=== PATIENT | male | born 1950 | race African-American/Black ===

== ENCOUNTER 2021-11-24 04:12 | Inpatient (IN) | payer OTHER ==
[2021-11-22 12:04] VITALS: BMI 33.0
[2021-11-24] MEDS ORDERED: BACITRACIN 15 GM TUBE TOPICAL OINTMENT ONE (07:07)
[2021-11-24] MEDS ORDERED: methylPREDNISolone ACET (DEPO) 80 MG/1 ML VIAL ONE (07:07)
[2021-11-24] MEDS ORDERED: THROMBIN (BOVINE) 5,000 UNIT VIAL TP ONE ×2 (07:07→08:36)
[2021-11-24] MEDS ORDERED: BUPIVACAINE HCL/PF 0.5% (5MG/ML) 10 ML VIAL ONE ×2 (07:08→10:13)
[2021-11-24] MEDS ORDERED: VANCOMYCIN 1,000 MG VIAL (RESTRICTED TO ID ONLY) ONE (07:21)
[2021-11-24] MEDS ORDERED: GENTAMICIN SO4 80 MG/2 ML VIAL ONE (07:21)
[2021-11-24] MEDS ORDERED: MIDAZOLAM HCL 2 MG/2 ML SINGLE DOSE VIAL ONE (07:37)
[2021-11-24] MEDS ORDERED: SUCCINYLCHOLINE CHLORIDE 200 MG/10 ML SYRINGE ONE (07:38)
[2021-11-24] MEDS ORDERED: PROPOFOL 20 ML ONE ×3 (07:38)
[2021-11-24] MEDS ORDERED: ROCURONIUM BROMIDE 50 MG/5 ML SYRINGE ONE (07:38)
[2021-11-24] MEDS ORDERED: ceFAZolin SODIUM 1 GM VIAL IVPB ONE ×2 (08:15→17:10)
[2021-11-24] MEDS ORDERED: VANCOMYCIN 1,000 MG VIAL (RESTRICTED TO ID ONLY) IVPB ONE (08:36)
[2021-11-24] MEDS ORDERED: BUPIVACAINE HCL/PF 0.5% (5MG/ML) 10 ML VIAL IJ ONE (09:40)
[2021-11-24] MEDS ORDERED: BISACODYL 10 MG SUPP.RECT RC PRN (10:12)
[2021-11-24] MEDS ORDERED: ACETAMINOPHEN 325 MG TABLET (FP) PO PRN (10:12)
[2021-11-24] MEDS ORDERED: ONDANSETRON 4 MG/2 ML VIAL IVPUSH PRN ×3 (10:12→11:03)
[2021-11-24] MEDS ORDERED: NEOSTIGMINE METHYLSULFATE 0.5 MG/1 ML - 10 ML MDV ONE (10:28)
[2021-11-24] MEDS ORDERED: PROMETHAZINE HCL 25 MG/1 ML VIAL IVPB PRN (11:03)
[2021-11-24] MEDS ORDERED: DEXAMETHASONE SOD PHOSPHATE 4 MG/1 ML VIAL IVPUSH PRN (11:03)
[2021-11-24] MEDS ORDERED: HYDROmorphone *PCA* 10MG/50ML DISP.SYRIN ONE (11:11)
[2021-11-24] MEDS ORDERED: LACTATED RINGERS SOLUTION 1,000 ML IV SCH (11:15)
[2021-11-24 11:41] LABS: HEMATOCRIT 40.8 % (35.4-49); HEMOGLOBIN 13.9 GM/dL (11.7-16.9); MCH 31.6 pg (25.7-33.7); MCHC 34.2 g/dl (32.0-35.9); MEAN CELL VOLUME 92.5 fl (80-96); PLATELET COUNT 191 10^3/uL (134-434); RBC 4.41 M/mm3 (4.00-5.60); RDW 13.3 % (11.9-15.9); WHITE BLOOD COUNT 6.5 K/mm3 (4.0-10.0)
[2021-11-24 12:05] LABS: CALCIUM 8.9 mg/dL (8.5-10.1)
[2021-11-24] MEDS ORDERED: HYDROmorphone *PCA* 10MG/50ML DISP.SYRIN PCA ONE (12:05)
[2021-11-24 12:08] LABS: CREATININE 1.8 mg/dL (0.55-1.3)
[2021-11-24] MEDS ORDERED: BACITRACIN 15 GM TUBE TOPICAL OINTMENT TP ONE (14:45)
[2021-11-24] MEDS ORDERED: ceFAZolin SODIUM 1 GM VIAL ONE (17:04)
[2021-11-24] MEDS: CEFAZOLIN 1 GM in DEXTROSE 5%-WATER - 50 ML IVPB SCH (17:59)
[2021-11-24] MEDS: DOCUSATE SODIUM 100 MG CAPSULE (FP) PO SCH (21:42)
[2021-11-25] MEDS: D5-1/2NS+20 MEQ KCL - 20 MEQ/1,000 ML INFUS.BAG IV SCH ×5 (01:08→11:59)
[2021-11-25] MEDS: diazePAM 5 MG TABLET PO SCH ×4 (01:16→17:29)
[2021-11-25] MEDS ORDERED: ceFAZolin SODIUM 1 GM VIAL ONE ×2 (02:02→09:48)
[2021-11-25] MEDS ORDERED: DEXTROSE 5%-WATER - 50 ML IVPB ONE ×2 (02:02→09:48)
[2021-11-25] MEDS: CEFAZOLIN 1 GM in DEXTROSE 5%-WATER - 50 ML IVPB SCH ×2 (02:04→10:12)
[2021-11-25] MEDS: DOCUSATE SODIUM 100 MG CAPSULE (FP) PO SCH ×4 (06:34→21:04)
[2021-11-25 08:36] LABS: BASO % 0.3 % (0-2.0); EOS % 0.1 % (0-4.5); HEMATOCRIT 38.1 % (35.4-49); LYMPH % 11.3 % (8-40); MCH 31.5 pg (25.7-33.7); MCHC 34.2 g/dl (32.0-35.9); MEAN CELL VOLUME 91.9 fl (80-96); MEAN PLT VOLUME 7.9 fl (7.5-11.1); MONO % 7.9 % (3.8-10.2); NEUT % 80.4 % (42.8-82.8); PLATELET COUNT 187 10^3/uL (134-434); RBC 4.14 M/mm3 (4.00-5.60); RDW 13.3 % (11.9-15.9); WHITE BLOOD COUNT 10.2 K/mm3 (4.0-10.0)
[2021-11-25 08:58] LABS: BLOOD UREA NITROGEN 14.8 mg/dL (7-18)
[2021-11-25 09:02] LABS: CREATININE 1.7 mg/dL (0.55-1.3)
[2021-11-25] MEDS: FINASTERIDE 5 MG TABLET (FP) PO SCH (10:13)
[2021-11-25] MEDS: OXYBUTYNIN CHLORIDE 5 MG TABLET PO SCH (10:13)
[2021-11-25] MEDS: TAMSULOSIN HCL 0.4 MG CAP PO SCH (10:13)
[2021-11-25] MEDS: HYDROmorphone *PCA* 10MG/50ML DISP.SYRIN PCA SCH ×2 (10:16→12:11)
[2021-11-26] MEDS: diazePAM 5 MG TABLET PO SCH ×3 (02:56→17:56)
[2021-11-26] MEDS: D5-1/2NS+20 MEQ KCL - 20 MEQ/1,000 ML INFUS.BAG IV SCH ×2 (06:17→17:52)
[2021-11-26] MEDS: DOCUSATE SODIUM 100 MG CAPSULE (FP) PO SCH ×3 (06:17→21:18)
[2021-11-26] MEDS ORDERED: MAGNESIUM CITRATE 300 ML BOTTLE PO ONE (09:00)
[2021-11-26] MEDS ORDERED: ACETAMINOPHEN 325 MG TABLET (FP) PO PRN (09:00)
[2021-11-26] MEDS: TAMSULOSIN HCL 0.4 MG CAP PO SCH (10:20)
[2021-11-26] MEDS: FINASTERIDE 5 MG TABLET (FP) PO SCH (10:20)
[2021-11-26] MEDS: OXYBUTYNIN CHLORIDE 5 MG TABLET PO SCH (10:20)
[2021-11-26] MEDS: oxyCODONE HCL 5 MG TABLET PO PRN (10:21)
[2021-11-27] MEDS: diazePAM 5 MG TABLET PO SCH ×3 (02:20→17:48)
[2021-11-27] MEDS: DOCUSATE SODIUM 100 MG CAPSULE (FP) PO SCH ×3 (05:31→21:34)
[2021-11-27] MEDS: OXYBUTYNIN CHLORIDE 5 MG TABLET PO SCH (09:18)
[2021-11-27] MEDS: TAMSULOSIN HCL 0.4 MG CAP PO SCH (09:18)
[2021-11-27] MEDS: FINASTERIDE 5 MG TABLET (FP) PO SCH (09:18)
[2021-11-28] MEDS: diazePAM 5 MG TABLET PO SCH ×3 (03:18→09:24)
[2021-11-28] MEDS: oxyCODONE HCL 5 MG TABLET PO PRN ×2 (06:17→14:13)
[2021-11-28] MEDS: DOCUSATE SODIUM 100 MG CAPSULE (FP) PO SCH ×2 (06:17→14:14)
[2021-11-28 06:35] VITALS: BP 133/63; PULSE 93; TEMP 98.2
[2021-11-28] MEDS: FINASTERIDE 5 MG TABLET (FP) PO SCH (09:24)
[2021-11-28] MEDS: TAMSULOSIN HCL 0.4 MG CAP PO SCH (09:24)
[2021-11-28] MEDS: OXYBUTYNIN CHLORIDE 5 MG TABLET PO SCH (09:25)
[2021-11-28] MEDS: D5-1/2NS+20 MEQ KCL - 20 MEQ/1,000 ML INFUS.BAG IV SCH (14:14)
== END 2021-11-28 15:00 | disposition home health service (06) | DRG 517 ==
LOC: J2C 04:12 → J6S 17:34
PROVIDERS: ADMIT Neurological Surgery; ATTEND Neurological Surgery
PROC: 01NR0ZZ Release Sacral Nerve, Open Approach (ICD-10-PCS; 2021-11-24)
PROC: 01NB0ZZ Release Lumbar Nerve, Open Approach (ICD-10-PCS; principal; 2021-11-24 07:30)
DX: M48.061 Spinal stenosis, lumbar region without neurogenic claudication (principal); M54.16 Radiculopathy, lumbar region; M48.07 Spinal stenosis, lumbosacral region; M54.17 Radiculopathy, lumbosacral region; I12.9 Hypertensive chronic kidney disease with stage 1 through stage 4 chronic kidney disease, or unspecified chronic kidney disease; N18.30 Chronic kidney disease, stage 3 unspecified; E78.5 Hyperlipidemia, unspecified; N40.0 Benign prostatic hyperplasia without lower urinary tract symptoms
CPT/HCPCS: 36415; 72100-TC-FY; 80048; 80051; 82565; 84520; 85025; 85027; 86850; 86900; 86901; 94760; 97116-GP; 97162-GP